=== PATIENT | female | born 1995 | race African-American/Black ===

== ENCOUNTER 2024-02-23 13:30 | Emergency (ER) | payer OTHER, SELFPAY ==
[2024-02-23 13:44] VITALS: BP 132/88; PULSE 100; RESP 16; TEMP 36.8; O2SAT 99
--- NOTE | 2024-02-23 14:45 | ED_ITS ---
HPI - Female Genitourinary General Chief complaint: Urogenital-Female Stated complaint: STD History of Present Illness HPI Narrative: Patient presents with complaints of thin white vaginal discharge. She reports that she has had similar discharge in the past with trich and BV. She is r equesting testing today. She denies any other complaints Related Data Home Medications Medication Instructions Recorded Confirmed bupropion HCl 100 mg tablet,12 hr mg PO 02/23/24 sustained-release clonidine HCl 0.2 mg tablet 0.2 mg 02/23/24 sertraline 100 mg tablet 100 mg 02/23/24 sertraline 100 mg tablet mg 02/23/24 venlafaxine 150 mg 150 mg PO 02/23/24 capsule,extended release 24 hr venlafaxine 150 mg 150 mg PO 02/23/24 capsule,extended release 24 hr Allergies Allergy/AdvReac Type Severity Reaction Status Date / Time No Known Allergies Allergy Verified 02/23/24 13:55 Review of Systems Review of Systems: All systems reviewed & are unremarkable except as noted in HPI and below Constitutional: Constitutional: Reports no additional constitutional complaints ENT: Reports system reviewed and no additional complaints, except as documented Cardiovascular: Cardiovascular: Reports no additional cardiovascular complaints Respiratory: Respiratory: Reports no additional respiratory complaints Gastrointestinal: Gastrointestinal: Reports no additional gastrointestinal complaints Genitourinary: Genitourinary: Reports as per HPI Exam Const: General: cooperative, no acute distress, alert and awake Orientation/consciousness: oriented to person, oriented to place and oriented to time HENMT: Head: normal to inspection Resp: Effort & Inspection: normal respiratory effort and able to speak in complete sentences Auscultation: clear to auscultation bilaterally, no crackles, no rales, no rhonchi and no wheezes Cardio: Palpation: normal PMI Rate: regular rate Rhythm: regular rhythm Heart sounds: S1 normal heart sound present and S2 normal heart sound present Neuro: General: oriented to person, oriented to place and oriented to time Cranial nerves: Yes CN's II-XII intact bilaterally Psych: Appearance: grossly normal Thought process: Normal thought process present Insight: Good insight present (Psych) Judgement: Good judgement present (Psych) Course Course Level of Care: Express Care Visit Vital Signs Vital signs: Vital Signs Temperature 98.2 F 02/23/24 13:44 Pulse Rate 100 02/23/24 13:44 Respiratory Rate 16 02/23/24 13:44 Blood Pressure 132/88 02/23/24 13:44 Pulse Oximetry 99 02/23/24 13:44 Oxygen Delivery Room Air 02/23/24 13:44 Temperature 98.2 F 02/23/24 13:44 Pulse Rate 100 02/23/24 13:44 Respiratory Rate 16 02/23/24 13:44 Blood Pressure 132/88 02/23/24 13:44 Pulse Oximetry 99 02/23/24 13:44 Oxygen Delivery Room Air 02/23/24 13:44 MDM - Female Genitourinary MDM Narrative Medical decision making narrative: Urine and vaginal swab sent. Patient advised that we will call with any positive results. She verbalizes understanding. Differential Diagnosis Differential diagnosis: Likely bacterial vaginosis, trichomoniasis, cervicitis and vaginitis Medical Records Attestation: I reviewed the patient's medical records. Lab Data Labs: Lab Results 02/23/24 Range/Units 14:00 Bact Vaginosis Panel Pending Discharge Plan Discharge Clinical Impression: Vaginal discharge Patient Disposition: Home, Self-Care Condition: Stable Instructions: Safe Sex Practices (ED) Additional Instructions: You will be notified of any positive test results. In the meantime, please abstain from sexual activity Patient Language: [place]ese Prescriptions: No Action sertraline 100 mg tablet 100 mg sertraline 100 mg tablet venlafaxine 150 mg capsule,extended release 24hr 150 mg PO venlafaxine 150 mg capsule,extended release 24hr 150 mg PO bupropion HCl 100 mg tablet sustained-release 12 hr PO clonidine HCl 0.2 mg tablet 0.2 mg Follow-up/Referrals: Lore,Opal Cartagena [Primary Care Provider] - Time of Disposition: 14:51
[2024-02-23 20:40] LABS: Trichomonas Vag PCR NOT DETECTED (NOT DETECTE)
[2024-02-24 00:27] LABS: Chlamydia trachomatis NOT DETECTED (NOT DETECTE); Neisseria gonorrhoeae PCR NOT DETECTED (NOT DETECTE)
== END 2024-02-23 15:10 | disposition home or self-care (01) ==
LOC: EXPCOLL 13:35
PROVIDERS: Emergency Provider Nurse Practitioner Family; PCP Internal Medicine Infectious Disease
DX: N89.8 Other specified noninflammatory disorders of vagina (principal)
CPT/HCPCS: 81513; 87491; 87591; 87661; 99203; G0463

== ENCOUNTER 2024-12-08 21:52 | Emergency (ER) | payer OTHER, SELFPAY ==
[2024-12-08 21:56] VITALS: BP 136/91; PULSE 114; RESP 20; TEMP 36.7; O2SAT 100
--- NOTE | 2024-12-08 23:28 | ED.GIBLEED ---
HPI - GI Bleed General Chief complaint: GI Bleed Stated complaint: rectal bleeding Time Seen by Provider: 12/08/24 22:54 History of Present Illness HPI Narrative: Patient is a 29-year-old female who presents to the ER with rectal bleeding. She endorses a history of hemorrhoids but reports this bleeding has been going on for approximately 1 week. Patient also endorses generalized abdominal pain, nausea, rectal itching and headache. She denies any urinary symptoms, recent fevers, or other areas of bleeding. Patient denies any history of anemia nor is she on blood thinners. She endorses a history of a kidney infection, prediabetes, abnormal kidneys and mental health issues. Related Data Home Medications ?Medication ?Instructions ?Recorded ?Confirmed ?Last Taken ?Type bupropion HCl 100 mg tablet,12 hr mg PO 02/23/24 Unknown History sustained-release clonidine HCl 0.2 mg tablet 0.2 mg PO .night 02/23/24 12/08/24 12/07/24 History sertraline 100 mg tablet 100 mg PO .night 02/23/24 12/08/24 12/07/24 History Held on 12/08/24. Instructions: Patient no longer taking sertraline 100 mg tablet mg 02/23/24 Unknown History venlafaxine 150 mg 150 mg PO 02/23/24 Unknown History capsule,extended release 24 hr venlafaxine 150 mg 150 mg PO QPM 02/23/24 12/08/24 12/07/24 History capsule,extended release 24 hr Allergies Allergy/AdvReac Type Severity Reaction Status Date / Time No Known Allergies Allergy Verified 12/08/24 21:55 Review of Systems Review of Systems: All systems reviewed & are unremarkable except as noted in HPI and below Exam Narrative: GENERAL: Well appearing, well-nourished, non-toxic, in no acute distress. HEAD: Normocephalic, atraumatic. NECK: Supple. No adenopathy, no masses. RESPIRATORY: Airway patent, respirations nonlabored. Clear to auscultation bilaterally, no rales, rhonchi, wheezing. CARDIOVASCULAR: Regular rate and rhythm without murmurs, rubs, or gallops. Peripheral pulses 2+ and equal bilaterally. ABDOMINAL: Soft, nontender, nondistended, no hepatosplenomegaly. Normoactive BS. MUSCULOSKELETAL: Moves all extremities. Strength/ROM intact without gross deformities. SKIN: Warm, dry, normal color. No rashes. NEURO: A&O X3. Speech clear. Cranial nerves II-XII intact. No ataxic movements. PSYCHIATRIC: Appropriate mood and affect. Normal interaction. GI : Positive Hemoccult results with digital exam, small palpable internal hemorrhoid at 6:00 o'clock position, very minimal amount of blood on glove following digital exam Course Vital Signs Vital signs: Vital Signs Temperature 36.7 C 12/08/24 21:56 Pulse Rate 114 H 12/08/24 21:56 Respiratory Rate 20 12/08/24 21:56 Blood Pressure 136/91 H 12/08/24 21:56 Pulse Oximetry 100 12/08/24 21:56 Oxygen Delivery Room Air 12/08/24 21:56 Temperature 36.7 C 12/08/24 21:56 Pulse Rate 114 H 12/08/24 21:56 Respiratory Rate 20 12/08/24 21:56 Blood Pressure 136/91 H 12/08/24 21:56 Pulse Oximetry 100 12/08/24 21:56 Oxygen Delivery Room Air 12/08/24 21:56 MDM - GI Bleed MDM Narrative Medical decision making narrative: Patient is a 29-year-old female who presents to the ER with rectal bleeding. She endorses a history of hemorrhoids but reports this bleeding has been going on for approximately 1 week. Patient also endorses intermittent general abdominal pain, nausea, rectal itching and headache. She denies any urinary symptoms, recent fevers, or other areas of bleeding. Patient denies any history of anemia nor is she on blood thinners. She endorses a history of a kidney infection, prediabetes, abnormal kidneys and mental health issues. Labs Ordered: CBC, CMP, lipase, UA Imaging Ordered: None necessary Medications Ordered: None necessary Diagnosis: Internal hemorrhoid, rectal bleeding Patient Education/Shared MDM: Results of lab work shared with patient. She voiced concerns about the amount of bright red blood she passed rectally earlier in the day. MAINTENANCE MANAGER provided reassurance that the amount of blood on her glove following a rectal exam was minimal. Patient was given extensive education about when to return to the ER, including black tardy stools, and large bright red clots coming from pt's rectum. Patient strongly advised to maintain hydration status upon discharge and follow-up with her PCP as soon as possible. She will be given a dose of Toradol and Anusol here in the ER. Patient will be discharged home with a prescription for Anusol. Strict return precautions provided. Patient verbalized understanding and is in agreement with plan. Vital signs stable at time of discharge. All questions answered. Differential Diagnosis Differential diagnosis: Likely hemorrhoids and anal fissure Lab Data Attestation: I reviewed the patient's lab results. 12/08/24 23:55 12/08/24 23:55 Labs: Lab Results 12/08/24 Range/Units 23:55 WBC 5.5 (4.5-10.0) K/mm3 RBC 4.56 (4.2-5.4) M/mm3 Hgb 12.9 (12.0-15.0) g/dL Hct 38.8 (37.0-47.0) % MCV 85.1 (80-100) fl MCH 28.3 (26-34) pg MCHC 33.2 (32-36) g/dl RDW 14.4 (11.5-14.5) % Plt Count 335 (150-375) k/mm3 MPV 8.6 (7.4-10.4) fl Immature Gran % (Auto) 0.2 (0-0.5) % Neut % (Auto) 35.3 L (45.5-73.1) % Lymph % (Auto) 54.0 H (18.3-44.2) % [place] % (Auto) 8.9 H (2.6-8.5) % Eos % (Auto) 1.1 (0-4.4) % Baso % (Auto) 0.5 (0.2-1.2) % Lymph # (Auto) 2.96 (0.9-3.2) K/mm3 [place] # (Auto) 0.5 (0.1-0.6) K/mm3 Eos # (Auto) 0.1 (0-0.3) K/mm3 Baso # (Auto) 0.0 (0.0-0.1) K/mm3 Abs Immat Gran (auto) 0.01 (0.00-0.031) K/mm3 Absolute Neuts (auto) 1.9 (1.3-6.7) K/mm3 Absolute Nucleated RBC 0.000 (0.0-0.012) K/mm3 Nucleated RBC % 0.0 (0.0-0.2) % Sodium 137 (137-145) mmol/L Potassium 3.8 (3.4-5.0) mmol/L Chloride 106 (98-107) mmol/L Carbon Dioxide 25 (22-30) mmol/L Anion Gap 6 (4-12) mmol/L BUN 9 (7-17) mg/dL Creatinine 0.90 (0.7-1.0) mg/dL Estim Creat Clear Calc 92 ml/min Estimated GFR > 60 (59 - ) Glucose 103 (65-110) mg/dL Calcium 8.8 (8.4-10.2) mg/dL Total Bilirubin 0.3 (0.2-1.3) mg/dL AST 27 (14-36) U/L ALT 21 (6-35) U/L Alkaline Phosphatase 61 (38-126) U/L Total Protein 7.4 (6.3-8.2) g/dL Albumin 3.8 (3.5-5.1) g/dL Lipase 148 (23-300) U/L Urine Color Yellow (Yellow) Urine Appearance Cloudy H (Clear) Urine pH 7.0 (5.0-9.0) Ur Specific [place] 1.025 (1.001-1.035) Urine Protein Trace (Negative) mg/dL Urine Glucose (UA) Negative (Negative) mg/dL Urine Ketones Trace H (Negative) mg/dL Ur Blood (Man) Negative (Negative) Urine Nitrate Negative (Negative) Urine Bilirubin Negative (Negative) Urine Urobilinogen 1.0 (<2.0) mg/dL Add Ur Microanalysis Reviewed Leukocyte Esterase Rfl Trace H (Negative) SAEED/UL Urine RBC 3-5 H (0-2) /hpf Urine WBC 0-5 (0-3) /hpf Ur Squamous Epith Cells None seen (Few) /hpf Urine Bacteria None seen /hpf Urine Casts 0-2 Discharge Plan Discharge Clinical Impression: Hemorrhoids, Blood in stool Patient Disposition: Home Condition: Stable Instructions: Antibiotic Form, Hemorrhoids (ED) Additional Instructions: Please return to the ER with any worsening symptoms, including black starry stools, bright red blood clots in the toilet, or significant abdominal pain. Follow-up with primary care provider as soon as possible for further evaluation. Take all medications as prescribed, including regularly scheduled medications. You may use Anusol for hemorrhoids relief. Please take Tylenol and/or ibuprofen for pain control. Patient Language: [place] Prescriptions: No Action sertraline 100 mg tablet 100 mg PO .night sertraline 100 mg tablet venlafaxine 150 mg capsule,extended release 24hr 150 mg PO QPM venlafaxine 150 mg capsule,extended release 24hr 150 mg PO bupropion HCl 100 mg tablet sustained-release 12 hr PO clonidine HCl 0.2 mg tablet 0.2 mg PO .night Follow-up/Referrals: Lore,Opal Cartagena [Primary Care Provider] Stand Alone Forms: Work/School Release IP Time of Disposition: 01:07
[2024-12-09 00:12] LABS: Hematocrit 38.8 % (37.0-47.0); Hemoglobin 12.9 g/dL (12.0-15.0); Immature Granulocyte Percent A 0.2 % (0-0.5); Lymphocytes Absolute Auto 2.96 K/mm3 (0.9-3.2); Mean Corpuscular HGB Conc 33.2 g/dl (32-36); Mean Corpuscular Hemoglobin 28.3 pg (26-34); Mean Corpuscular Volume 85.1 fl (80-100); Nucleated Red Blood Cells Absolute Auto 0.000 K/mm3 (0.0-0.012); Nucleated Red Blood Cells Perc 0.0 % (0.0-0.2); Platelet Count Result 335 k/mm3 (150-375); Red Blood Count 4.56 M/mm3 (4.2-5.4); White Blood Count 5.5 K/mm3 (4.5-10.0)
[2024-12-09 00:13] LABS: Alanine Aminotransferase 21 U/L (6-35); Albumin Level 3.8 g/dL (3.5-5.1); Alkaline Phosphatase 61 U/L (38-126); Anion Gap 6 mmol/L (4-12); Aspartate Amino Transferase 27 U/L (14-36); Bilirubin,Total 0.3 mg/dL (0.2-1.3); Blood Urea Nitrogen 9 mg/dL (7-17); Calcium 8.8 mg/dL (8.4-10.2); Carbon Dioxide 25 mmol/L (22-30); Chloride 106 mmol/L (98-107); Estimated CRCL calculation 92 ml/min; Estimated Glomerular Filt Rate > 60; Glucose 103 mg/dL (65-110); Lipase 148 U/L (23-300); Potassium 3.8 mmol/L (3.4-5.0); Sodium 137 mmol/L (137-145); Total Protein 7.4 g/dL (6.3-8.2)
[2024-12-09] MEDS: SODIUM CHLORIDE 0.9% IV 1,000 ML 999 ML IV CONT ×2 (00:15→01:30)
[2024-12-09 00:17] LABS: Add Urine Microscopic? YES; Appearance Urine Cloudy (Clear); Glucose Urine UA Negative (Negative); Leukocyte Esterase Ur Trace LEU/UL (Negative); Need Manual Microscopic Reviewed; Nitrate Urine Negative (Negative); Non Pathogenic Casts 0-2; Specific Grav Ur 1.025 (1.001-1.035)
[2024-12-09] MEDS: KETOROLAC 15 MG/ML VIAL (*BKC) IV PUSH (01:23)
[2024-12-09 01:30] VITALS: BP 125/68; PULSE 68; RESP 14; O2SAT 99
== END 2024-12-09 01:30 | disposition home or self-care (01) ==
PROVIDERS: Emergency Provider Registered Nurse; PCP Internal Medicine Infectious Disease
DX: K64.9 Unspecified hemorrhoids (principal); K92.1 Melena; R73.03 Prediabetes; Z87.440 Personal history of urinary (tract) infections; Z79.899 Other long term (current) drug therapy
CPT/HCPCS: 36415; 80053; 81001; 83690; 85025; 96361; 96374; 99284; A9270; J1885; J7030

== ENCOUNTER 2025-01-07 16:07 | Emergency (ER) | payer OTHER, SELFPAY ==
[2025-01-07 16:10] VITALS: PULSE 100; RESP 16; TEMP 36.7; O2SAT 100
[2025-01-07 17:48] VITALS: BP 115/85; PULSE 83; RESP 16; O2SAT 100
--- NOTE | 2025-01-07 18:52 | ED.GENADULT ---
HPI - General Adult General Chief complaint: Unspecified Stated complaint: R breast pain Time Seen by Provider: 01/07/25 16:42 History of Present Illness HPI narrative: This is a 29-year-old female history of abscesses presenting with right nipple pain. Patient signed over last week and half she has had a lump behind her nipple has become progressively more painful. Purulent or bloody discharge. She has a history of nipple piercings. No systemic signs of illness such as fevers chills nausea vomiting diarrhea. Related Data Home Medications ?Medication ?Instructions ?Recorded ?Confirmed ?Last Taken ?Type bupropion HCl 100 mg tablet,12 hr mg PO 02/23/24 Unknown History sustained-release clonidine HCl 0.2 mg tablet 0.2 mg PO .night 02/23/24 12/08/24 12/07/24 History sertraline 100 mg tablet 100 mg PO .night 02/23/24 12/08/24 12/07/24 History Held on 12/08/24. Instructions: Patient no longer taking sertraline 100 mg tablet mg 02/23/24 Unknown History venlafaxine 150 mg 150 mg PO 02/23/24 Unknown History capsule,extended release 24 hr venlafaxine 150 mg 150 mg PO QPM 02/23/24 12/08/24 12/07/24 History capsule,extended release 24 hr Allergies Allergy/AdvReac Type Severity Reaction Status Date / Time No Known Allergies Allergy Verified 01/07/25 16:09 Exam Narrative: APPEARANCE: No apparent distress. Head: atraumatic. EYES: EOMI, NOSE: Atraumatic NECK: Trachea midline RESPIRATORY: No increased rate of breathing CARDIOVASCULAR: RRR, Breast exam: Fluctuant mass behind the right nipple, point of care ultrasound showed hypoechoic structure consistent with abscess ABDOMINAL: Non-distended MUSCULOSKELETAl: No obvious deformities NEURO: Alert. Moving 4/4 extremities SKIN:: Warm, dry. Normal color PSYCHIATRIC: Normal affect Course Vital Signs Vital signs: Vital Signs Temperature 98.1 F 01/07/25 16:10 Pulse Rate 100 01/07/25 16:10 Respiratory Rate 16 01/07/25 16:10 Pulse Oximetry 100 01/07/25 16:10 Oxygen Delivery Room Air 01/07/25 16:10 Temperature 98.1 F 01/07/25 16:10 Pulse Rate 83 01/07/25 17:48 Respiratory Rate 16 01/07/25 17:48 Blood Pressure 115/85 01/07/25 17:48 Pulse Oximetry 100 01/07/25 17:48 Oxygen Delivery Room Air 01/07/25 16:10 Procedures Abscess I/D breast: Date of Incision: 01/07/25 Local Anesthetic: bupivacaine 0.25% Amount of anesthesia used (mL): 8 Technique: needle aspiration Amount of fluid expressed (mL): 3 Irrigation: No Packing used?: none I&D Results: Pus Medical Decision Making MDM Narrative Medical decision making narrative: -Course: 29-year-old female w/ hx of abscess presenting with painful mass behind her right nipple. Point of care ultrasound showed a hypoechoic structure consistent with abscess. No overlying skin changes. Patient verbally consented for needle aspiration. Aspiration of 3 cc of purulent material. Patient will be discharged on antibiotics to cover MRSA. Given OBGYN follow-up. Given return precautions. -DDX includes but is not limited to: Able abscess, breast cancer Vital Signs Vital Signs: Vital Signs Temperature 98.1 F 01/07/25 16:10 Pulse Rate 100 01/07/25 16:10 Respiratory Rate 16 01/07/25 16:10 Pulse Oximetry 100 01/07/25 16:10 Oxygen Delivery Room Air 01/07/25 16:10 Temperature 98.1 F 01/07/25 16:10 Pulse Rate 83 01/07/25 17:48 Respiratory Rate 16 01/07/25 17:48 Blood Pressure 115/85 01/07/25 17:48 Pulse Oximetry 100 01/07/25 17:48 Oxygen Delivery Room Air 01/07/25 16:10 Discharge Plan Discharge Clinical Impression: Abscess of breast Patient Disposition: Home Condition: Stable Instructions: Antibiotic Form, Abscess (ED) Additional Instructions: You were seen in the emergency department for a breast abscess. We were able to aspirate some purulence with a needle, however you need to follow-up with an OBGYN for further management. You may need additional aspirations. Please complete the antibiotics as instructed. Follow-up with the OBGYN listed below in 1-2 days or as soon as possible. If you cannot get in to see the OBGYN the abscess is returning or you develop signs of illness such as fevers chills nausea vomiting diarrhea please return to the ED for re-evaluation. Patient Language: [place]riot Prescriptions: New clindamycin HCl [Cleocin HCl] 150 mg capsule 450 mg PO Q6H 10 Days Qty: 120 0RF No Action sertraline 100 mg tablet 100 mg PO .night sertraline 100 mg tablet venlafaxine 150 mg capsule,extended release 24hr 150 mg PO QPM venlafaxine 150 mg capsule,extended release 24hr 150 mg PO bupropion HCl 100 mg tablet sustained-release 12 hr PO clonidine HCl 0.2 mg tablet 0.2 mg PO .night Follow-up/Referrals: Deric Limon CORPORATE DEVELOPMENT ANALYST [Provider Group] - 1 Day Referral Note: breast abscess Clinical Impression: Abscess of breast Lore,Trae Cartagena. [Primary Care Provider]
[2025-01-07] MEDS: HYDROcodone/acetaminophen (*CRX) 5-325 MG TABLET 2 TAB PO (19:18)
== END 2025-01-07 19:22 | disposition home or self-care (01) ==
PROVIDERS: Emergency Provider Emergency Medicine; PCP Internal Medicine Infectious Disease
DX: N61.1 Abscess of the breast and nipple (principal)
CPT/HCPCS: 10060; 10160; 99283; A9270